=== PATIENT | male | born 1955 | race Caucasian/White ===

== ENCOUNTER 2017-10-24 06:32 | Emergency (ER) | payer OTHER ==
[~2017-10-24] VITALS: Ht 182.9 cm; Wt 74.8 kg
[~2017-10-24 06:32] MED LIST: AEROECLIPSE II1 EACH MC; ALBU90OI INH; Ativan0.5 MG PO; BP MED; BUDE10.22 INH; CEPH500 PO; DEPAKOTE; DIVA250EC PO; DIVA250ER PO; DIVA500EC PO; HYDACE5 PO; KETO10 PO; LISI20 PO; LORA1 PO; Lisinopril2.5 MG; Mucinex600 MG PO; OTC VITAMINS; Prednisone20 MG PO; QUET100 PO; RISPERDAL PO; RXONDA4ODT MM; Ventolin Soln3 ML INH; Vibramycin100 MG PO; Zithromax250 MG PO
[2017-10-24] MEDS ORDERED: ALBU90OI INH ×2 (06:42→08:33)
[2017-10-24 07:11] LABS: BASOPHILS ABSOLUTE AUTO 0.09 K/mm3 (0.00-0.23); BASOPHILS PERCENT AUTO 1 % (0-2); EOSINOPHILS ABSOLUTE AUTO 0.61 K/mm3 (0.00-0.68); EOSINOPHILS PERCENT AUTO 8 % (0-6); Hematocrit 46.8 % (37.0-53.0); Hemoglobin 15.5 g/dL (13.5-17.5); IMMATURE GRAN ABSOLUTE AUTO 0.06 K/mm3 (0.00-0.10); IMMATURE GRAN PERCENT AUTO 1 % (0-1); LYMPHOCYTES ABSOLUTE AUTO 1.75 K/mm3 (0.84-5.20); LYMPHOCYTES PERCENT AUTO 22 % (21-46); MONOCYTES PERCENT AUTO 9 % (4-13); Mean Corpuscular HGB 29.3 pg (26.0-34.0); Mean Corpuscular HGB Conc 33.1 g/dL (31.5-36.5); Mean Corpuscular Volume 89 fL (80-100); Mean Platelet Volume 10.2 fL (9.1-12.4); NEUTROPHILS ABSOLUTE AUTO 4.77 K/mm3 (1.96-9.15); NEUTROPHILS PERCENT AUTO 60 % (41-73); Platelet Count 224 K/mm3 (150-400); RDW Coefficient Variation 14.6 % (11.7-14.2); RDW Standard Deviation 47.6 fL (35.1-46.3); Red Blood Cell Count 5.29 M/mm3 (4.30-5.90); White Blood Cell Count 7.98 K/mm3 (4.00-11.30)
[2017-10-24 07:29] LABS: Alanine Aminotransfer (ALT/SGP 18 U/L (12-78); Albumin, Blood 3.5 g/dL (3.4-5.0); Albumin/Globulin Ratio 0.9 (0.8-1.8); Alk Phos 83 U/L (50-136); Anion Gap 6 mmol/L (6-16); Aspartate Aminotrans (AST/SGOT 15 U/L (12-37); Bilirubin, Total 0.2 mg/dL (0.1-1.0); Blood Urea Nitrogen 15 mg/dL (8-24); Bun/Creatinine Ratio 16.5 (12.0-20.0); CO2, Blood 29 mmol/L (21-32); Calcium, Blood 9.1 mg/dL (8.5-10.1); Chloride, Blood 104 mmol/L (98-108); Creatinine, Blood 0.91 mg/dL (0.60-1.20); Globulin, Blood 4.1 g/dL (2.2-4.0); Glomerular Filtration Rate >60 (60-); Glucose, Blood 91 mg/dL (70-99); Potassium, Blood 4.4 mmol/L (3.5-5.5); Sodium, Blood 139 mmol/L (136-145); Total Protein, Blood 7.6 g/dL (6.4-8.2); Troponin I <0.015 ng/mL (0.000-0.040)
[2017-10-24] MEDS ORDERED: METPRE4DP PO (08:33)
[2017-10-24] MEDS ORDERED: Duoneb 2.5-0.5 M3 ML INH (08:33)
== END 2017-10-24 08:53 | disposition home or self-care (01) ==
LOC: ER 06:32
PROVIDERS: Emergency Medicine
DX: J44.1 Chronic obstructive pulmonary disease with (acute) exacerbation (principal); I10 Essential (primary) hypertension; F31.9 Bipolar disorder, unspecified; I72.9 Aneurysm of unspecified site; F17.210 Nicotine dependence, cigarettes, uncomplicated; Z88.2 Allergy status to sulfonamides; Z88.6 Allergy status to analgesic agent; Z79.51 Long term (current) use of inhaled steroids; Z79.899 Other long term (current) drug therapy
CPT/HCPCS: 36415; 71046; 80053; 83880; 84484; 85025; 93005; 93010; 94640; 96374; 99284; J2930

== ENCOUNTER 2017-12-19 18:35 | Emergency (ER) | payer SELFPAY ==
[~2017-12-19] VITALS: Ht 177.8 cm; Wt 72.6 kg
[~2017-12-19 18:35] MED LIST changes: +Duoneb 2.5-0.5 M3 ML INH; +METPRE4DP PO
[2017-12-19] MEDS ORDERED: LISI20 PO (19:59)
== END 2017-12-19 21:30 | disposition short-term general hospital (02) ==
LOC: ER 18:35
DX: F25.9 Schizoaffective disorder, unspecified (principal); I10 Essential (primary) hypertension; J44.9 Chronic obstructive pulmonary disease, unspecified; F17.210 Nicotine dependence, cigarettes, uncomplicated; Z79.899 Other long term (current) drug therapy; Z79.51 Long term (current) use of inhaled steroids
CPT/HCPCS: 93005; 93010

== ENCOUNTER 2019-04-07 06:18 | Emergency (ER) | payer OTHER ==
[~2019-04-07] VITALS: Ht 180.3 cm; Wt 72.6 kg
[~2019-04-07 06:18] MED LIST changes: -DIVA250EC PO; +DIVA500ER PO; +PRED20 PO; +RISP2 PO; -RISPERDAL PO
[2019-04-07 06:58] LABS: BASOPHILS ABSOLUTE AUTO 0.03 K/mm3 (0.00-0.23); BASOPHILS PERCENT AUTO 0 % (0-2); EOSINOPHILS ABSOLUTE AUTO 0.21 K/mm3 (0.00-0.68); EOSINOPHILS PERCENT AUTO 2 % (0-6); Hematocrit 38.4 % (37.0-53.0); Hemoglobin 12.9 g/dL (13.5-17.5); IMMATURE GRAN ABSOLUTE AUTO 0.18 K/mm3 (0.00-0.10); IMMATURE GRAN PERCENT AUTO 1 % (0-1); LYMPHOCYTES ABSOLUTE AUTO 1.92 K/mm3 (0.84-5.20); LYMPHOCYTES PERCENT AUTO 15 % (21-46); MONOCYTES ABSOLUTE AUTO 1.07 K/mm3 (0.16-1.47); MONOCYTES PERCENT AUTO 8 % (4-13); Mean Corpuscular HGB 28.5 pg (26.0-34.0); Mean Corpuscular HGB Conc 33.6 g/dL (31.5-36.5); Mean Corpuscular Volume 85 fL (80-100); Mean Platelet Volume 10.2 fL (9.1-12.4); NEUTROPHILS ABSOLUTE AUTO 9.58 K/mm3 (1.96-9.15); NEUTROPHILS PERCENT AUTO 74 % (41-73); Platelet Count 240 K/mm3 (150-400); RDW Coefficient Variation 14.3 % (11.7-14.2); RDW Standard Deviation 44.4 fL (35.1-46.3); Red Blood Cell Count 4.53 M/mm3 (4.30-5.90); White Blood Cell Count 12.99 K/mm3 (4.00-11.30)
[2019-04-07 07:09] LABS: Source, Urine Clean Catch
[2019-04-07 07:12] LABS: Bilirubin, Urine Neg (Neg); Blood, Urine Neg (Neg); Glucose Qualitative, Urine Neg (Neg); Ketones, Urine Neg (Neg); Leukocyte Esterase, Urine Neg (Neg); Nitrite, Urine Neg (Neg); Protein, Urine Neg (Neg); Urobilinogen, Urine NORM (Normal)
[2019-04-07 07:13] LABS: Appearance, Urine Clear (Clear); Color, Urine Yellow (P-Yellow)
[2019-04-07 07:20] LABS: Anion Gap 5 mmol/L (6-16); Blood Urea Nitrogen 17 mg/dL (8-24); Bun/Creatinine Ratio 16.7 (12.0-20.0); CO2, Blood 30 mmol/L (21-32); Chloride, Blood 100 mmol/L (98-108); Creatinine, Blood 1.02 mg/dL (0.60-1.20); Glomerular Filtration Rate >60 (60-); Glucose, Blood 94 mg/dL (70-99); Potassium, Blood 4.7 mmol/L (3.5-5.5); Sodium, Blood 135 mmol/L (136-145)
[2019-04-07 07:21] LABS: Albumin, Blood 3.1 g/dL (3.4-5.0); Albumin/Globulin Ratio 0.9 (0.8-1.8); Alk Phos 88 U/L (50-136); Aspartate Aminotrans (AST/SGOT 17 U/L (12-37); Bilirubin, Total 0.3 mg/dL (0.1-1.0); Calcium, Blood 8.3 mg/dL (8.5-10.1); Globulin, Blood 3.3 g/dL (2.2-4.0); Total Protein, Blood 6.4 g/dL (6.4-8.2)
[2019-04-07 07:22] LABS: Troponin I <0.015 ng/mL (0.000-0.040)
[2019-04-07 07:23] LABS: Alanine Aminotransfer (ALT/SGP 27 U/L (12-78)
[2019-04-07] MEDS ORDERED: Prednisone20 MG PO (07:45)
== END 2019-04-07 09:08 | disposition home or self-care (01) ==
LOC: ER 06:18
PROVIDERS: Emergency Medicine
DX: J44.1 Chronic obstructive pulmonary disease with (acute) exacerbation (principal); F31.9 Bipolar disorder, unspecified; I10 Essential (primary) hypertension; G40.909 Epilepsy, unspecified, not intractable, without status epilepticus; Z88.2 Allergy status to sulfonamides; Z88.8 Allergy status to other drugs, medicaments and biological substances; Z79.899 Other long term (current) drug therapy; Z79.52 Long term (current) use of systemic steroids; F17.200 Nicotine dependence, unspecified, uncomplicated
CPT/HCPCS: 36415; 71046; 80053; 81003; 83880; 84484; 85025; 93005; 93010; 99284-25; J7512

== ENCOUNTER 2019-04-22 23:27 | Observation (INO) | payer SELFPAY ==
[~2019-04-22] VITALS: Ht 180.3 cm; Wt 70.3 kg
[2019-04-23 00:26] LABS: Base Excess Venous 6.2 mmol/L; Bicarbonate Venous 28.2 mmol/L (24.0-30.0); PCO2 Venous 53.1 mmHg (38-42); PO2 Venous 34.5 mmHg (38-42); pH Blood Venous 7.38 (7.34-7.37)
[2019-04-23 00:31] LABS: BASOPHILS ABSOLUTE AUTO 0.06 K/mm3 (0.00-0.23); BASOPHILS PERCENT AUTO 1 % (0-2); EOSINOPHILS ABSOLUTE AUTO 0.33 K/mm3 (0.00-0.68); EOSINOPHILS PERCENT AUTO 3 % (0-6); Hematocrit 34.6 % (37.0-53.0); Hemoglobin 11.6 g/dL (13.5-17.5); IMMATURE GRAN ABSOLUTE AUTO 0.15 K/mm3 (0.00-0.10); IMMATURE GRAN PERCENT AUTO 1 % (0-1); LYMPHOCYTES ABSOLUTE AUTO 1.36 K/mm3 (0.84-5.20); LYMPHOCYTES PERCENT AUTO 13 % (21-46); MONOCYTES ABSOLUTE AUTO 1.48 K/mm3 (0.16-1.47); MONOCYTES PERCENT AUTO 14 % (4-13); Mean Corpuscular HGB 29.1 pg (26.0-34.0); Mean Corpuscular HGB Conc 33.5 g/dL (31.5-36.5); Mean Corpuscular Volume 87 fL (80-100); Mean Platelet Volume 9.7 fL (9.1-12.4); NEUTROPHILS PERCENT AUTO 68 % (41-73); Platelet Count 351 K/mm3 (150-400); RDW Coefficient Variation 14.3 % (11.7-14.2); RDW Standard Deviation 45.5 fL (35.1-46.3); Red Blood Cell Count 3.99 M/mm3 (4.30-5.90); White Blood Cell Count 10.58 K/mm3 (4.00-11.30)
[2019-04-23 00:53] LABS: Alanine Aminotransfer (ALT/SGP 23 U/L (12-78); Albumin, Blood 2.9 g/dL (3.4-5.0); Albumin/Globulin Ratio 0.7 (0.8-1.8); Alk Phos 96 U/L (50-136); Anion Gap 7 mmol/L (6-16); Aspartate Aminotrans (AST/SGOT 18 U/L (12-37); Bilirubin, Total 0.2 mg/dL (0.1-1.0); Blood Urea Nitrogen 23 mg/dL (8-24); Bun/Creatinine Ratio 20.7 (12.0-20.0); CO2, Blood 30 mmol/L (21-32); Calcium, Blood 8.7 mg/dL (8.5-10.1); Chloride, Blood 91 mmol/L (98-108); Creatinine, Blood 1.11 mg/dL (0.60-1.20); Globulin, Blood 4.4 g/dL (2.2-4.0); Glomerular Filtration Rate >60 (60-); Glucose, Blood 87 mg/dL (70-99); Potassium, Blood 4.9 mmol/L (3.5-5.5); Sodium, Blood 128 mmol/L (136-145); Total Protein, Blood 7.3 g/dL (6.4-8.2); Troponin I <0.015 ng/mL (0.000-0.040)
[2019-04-23] MEDS ORDERED: Prednisone20 MG PO (02:41)
--- NOTE | 2019-04-23 17:09 | NUR ---
PT ARRIVED TO THE FLOOR THIS AFTERNOON BY JEANNA. PT IRRITABLE, BUT COOPERATIVE WITH STAFF. PT WITHOUT SIGNS OF RESPIRATORY DISTRESS DURING THIS SHIFT. PT REMOVED FROM 2L O2 PER DR CHINCHILLA. NO RESPIRATORY DISTRESS AFTER REMOVING O2. PT SELF ADJUSTS IN BED AND USES CALL LIGHT APPROPRIATELY. PT HAS WOUND ON RT BALDERRAMA THAT IS BEING CARED FOR BY THE [facility]. PT STATES WHEELCHAIR BOUND AT BASELINE AND CAREGIVERS HAVE BECOME UNRELIABLE. PT CURRENTLY WATCHING TV IN ROOM WITHOUT FURTHER REQUESTS. CALL LIGHT IN REACH, WILL CONTINUE TO MONITOR.
--- NOTE | 2019-04-23 21:29 | NUR ---
PATIENT HEARD CURSING AND TALKING LOUDLY IN ROOM. CHECKED ON PATIENT AND HE STATED HE WAS FINE. PATIENT WAS ON THE PHONE AT THE TIME. PATIENT REFUSED TO ALLOW THIS NURSE TO DO A FULL ASSESSMENT AND BEGAN FLAILING HIS ARMS AROUND AND THEN COMPLAINED ABOUT A DOG "JUMPING ON HIS WOUNDS". PATIENT HAS A WOUND ON LOWER RIGHT BALDERRAMA/ANKLE THAT HE STATES A DOG HAS BEEN LICKING. WOUND IS OPEN TO AIR. PATIENT CALLS APPROPRIATELY AND USES URINAL. WHEN DUMPING THE URINAL OUT IN THE TOILET THE PATIENT ASKED IF I WAS KEEPING HIS URINE HIDDEN. PATIENT HEARD CUSSING AND SAYING RACIAL SLURS IN A CONVERSATION WITH HIMSELF. PATIENT STATES HE IS SPEAKING TO HIS "SLUM LORD" ALTHOUGH HE IS NOT ON THE PHONE NOR IS ANYONE ELSE IN THE ROOM. WILL CONTINUE TO MONITOR AND TRY TO DO AN ASSESSMENT LATER IN THE SHIFT. PATIENT REFUSED VITAL SIGNS WELL ACCORDING TO THE LATHE MACHINE OPERATOR.
[2019-04-24 05:01] LABS: Hematocrit 34.9 % (37.0-53.0); Hemoglobin 11.8 g/dL (13.5-17.5); Mean Corpuscular HGB 29.1 pg (26.0-34.0); Mean Corpuscular HGB Conc 33.8 g/dL (31.5-36.5); Mean Corpuscular Volume 86 fL (80-100); Mean Platelet Volume 9.6 fL (9.1-12.4); Platelet Count 388 K/mm3 (150-400); RDW Coefficient Variation 14.2 % (11.7-14.2); RDW Standard Deviation 44.8 fL (35.1-46.3); Red Blood Cell Count 4.05 M/mm3 (4.30-5.90); White Blood Cell Count 12.35 K/mm3 (4.00-11.30)
--- NOTE | 2019-04-24 05:15 | NUR ---
SHIFT SUMMARY NO ACUTE EVENTS OVERNIGHT. PATEINT DID NOT SLEEP AT ALL T/O THE NIGHT. PATIENT WAS UNCOOPERATIVE WITH STAFF AND REFUSED TO ALLOW HIS VITAL SIGNS TO BE TAKEN DURING FIRST PART OF SHIFT. PATIENT WAS COOPERATIVE AFTER MIDNIGHT AND ALLOWED A SET OF VITALSIGNS BE TAKEN. PATIENT ON MULTIPLE OCCASIONS WAS ASKED TO NOT SPEAK IN SUCH A LOUD VOICE AND TO ATTEMPT TO REFRAIN FROM CURSING. PATEINT UPSET ABOUT DOGS AT [facility] JUSMPING ON AND LICKING HIS WOUNDS. PATIENT UP MAKING PHONE CALLS ALL NIGHT LONG. PATEINT ALSO OBSERVED SPEAKING TO SELF ON MULTIPLE OCCASIONS AND YELLING AT TV. WILL CONTINUE TO MONITOR
[2019-04-24 05:44] LABS: Alanine Aminotransfer (ALT/SGP 17 U/L (12-78); Albumin, Blood 2.7 g/dL (3.4-5.0); Albumin/Globulin Ratio 0.6 (0.8-1.8); Alk Phos 85 U/L (50-136); Anion Gap 9 mmol/L (6-16); Aspartate Aminotrans (AST/SGOT 17 U/L (12-37); Bilirubin, Total 0.2 mg/dL (0.1-1.0); Blood Urea Nitrogen 23 mg/dL (8-24); Bun/Creatinine Ratio 25.2 (12.0-20.0); CO2, Blood 27 mmol/L (21-32); Calcium, Blood 8.6 mg/dL (8.5-10.1); Chloride, Blood 97 mmol/L (98-108); Creatinine, Blood 0.91 mg/dL (0.60-1.20); Globulin, Blood 4.2 g/dL (2.2-4.0); Glomerular Filtration Rate >60 (60-); Glucose, Blood 173 mg/dL (70-99); Potassium, Blood 4.4 mmol/L (3.5-5.5); Sodium, Blood 133 mmol/L (136-145); Total Protein, Blood 6.9 g/dL (6.4-8.2)
[2019-04-24] MEDS ORDERED: ALBU2.5V5 INH (07:58)
[2019-04-24] MEDS ORDERED: CLOP75 PO (07:59)
[2019-04-24] MEDS ORDERED: Amlodipine Besy10 MG PO (07:59)
[2019-04-24] MEDS ORDERED: Hydroxyzine HCl50 MG PO (08:01)
[2019-04-24] MEDS ORDERED: PANT40 PO (08:03)
--- NOTE | 2019-04-24 08:51 | NUR ---
[facility] HOME MED LIST, MED LIST RECONCILED. DR CHINCHILLA NOTIFIED OF CHANGES TO MEDICATIONS. PT REFUSED FOR RESP PANEL TO BE COMPLETED. CONFIRMED WITH BY YOUR SIDE IN [place] THAT CAREGIVER TO BE AT HIS HOUSE TODAY AT 1:00.
[2019-04-24] MEDS ORDERED: Ventolin/Prove6.7 GM INH (11:19)
[2019-04-24] MEDS ORDERED: FLUT1DIS5 INH ×2 (11:20→11:34)
[2019-04-24] MEDS ORDERED: LEVO750 PO (11:21)
[2019-04-24] MEDS ORDERED: Prednisone10 MG PO (11:24)
--- NOTE | 2019-04-24 11:30 | NUR ---
PT USES [facility]. 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 SPOKE WITH [facility] AND THEY CAN FILL RX TODAY AND DELIVER AFTER 1:00, PT AGREED TO THIS. [facility] REIMBURSE[facility] SHEET GIVEN TO PT. CAREGIVER TO BE AT PT HOUSE AT 1:00. PT ABLE TO GET UP INTO CHAIR WITH [facility]. PT REPORTS HE WILL PAY FOR [employer] W/C TRANSPORT BACK HOME. WILL CALL FOR TRANSPORT ONCE HOME EVAL COMPLETED.
--- NOTE | 2019-04-24 12:11 | NUR ---
DISCHARGE INSTRUCTIONS REVIEWED WITH PT. IV DC'D INTACT. PT AWAITING [facility] W/ TRANSPORT HOME AT THIS TIME. HOME 02 EVAL COMPLETED AND NO OXYGEN NEEDED.
--- NOTE | 2019-04-24 12:21 | NUR ---
PT DISCHARGED HOME VIA [facility] W/C AT 1220. CAREGIVER TO BE AT HIS HOUSE AT 1300 AND PHARMACY TO DELIVER AFTER 1300.
== END 2019-04-24 12:22 | disposition home or self-care (01) ==
LOC: ER 23:27 → ERHOLD 23:28 → MEDS 04-23 12:18 → ENPENDDIS 04-24 11:09 → MEDS 04-24 12:22
PROVIDERS: Emergency Medicine; ADMIT Internal Medicine
DX: J96.01 Acute respiratory failure with hypoxia (principal); J44.1 Chronic obstructive pulmonary disease with (acute) exacerbation; T38.0X5A Adverse effect of glucocorticoids and synthetic analogues, initial encounter; D72.829 Elevated white blood cell count, unspecified; E87.1 Hypo-osmolality and hyponatremia; I10 Essential (primary) hypertension; I73.9 Peripheral vascular disease, unspecified; L97.919 Non-pressure chronic ulcer of unspecified part of right lower leg with unspecified severity; F31.9 Bipolar disorder, unspecified; F17.210 Nicotine dependence, cigarettes, uncomplicated; K92.1 Melena; Z85.47 Personal history of malignant neoplasm of testis; Z79.899 Other long term (current) drug therapy; Z79.02 Long term (current) use of antithrombotics/antiplatelets; Z79.52 Long term (current) use of systemic steroids; Z88.2 Allergy status to sulfonamides; Z88.8 Allergy status to other drugs, medicaments and biological substances
CPT/HCPCS: 36415; 71046; 80053; 82803; 83880; 84145; 84484; 85025; 85027; 86850; 86900; 86901; 93005; 93010; 94640; 94760; 94761; 96361; 96365; 96366; 96372; 96375; 96376; 99285-25; G0378; J0456; J0696; J1650; J2930; J7030; J7050

== ENCOUNTER 2019-05-05 00:14 | Emergency (ER) | payer OTHER ==
[~2019-05-05] VITALS: Ht 177.8 cm; Wt 72.6 kg
[~2019-05-05 00:14] MED LIST changes: +ALBU2.5V5 INH; +Amlodipine Besy10 MG PO; +CLOP75 PO; +FLUT1DIS5 INH; +Hydroxyzine HCl50 MG PO; +LEVO750 PO; +PANT40 PO; +Prednisone10 MG PO; +Ventolin/Prove6.7 GM INH
[2019-05-05 00:32] LABS: BASOPHILS ABSOLUTE AUTO 0.03 K/mm3 (0.00-0.23); BASOPHILS PERCENT AUTO 0 % (0-2); EOSINOPHILS PERCENT AUTO 0 % (0-6); Hematocrit 36.3 % (37.0-53.0); Hemoglobin 12.1 g/dL (13.5-17.5); IMMATURE GRAN PERCENT AUTO 4 % (0-1); LYMPHOCYTES ABSOLUTE AUTO 1.61 K/mm3 (0.84-5.20); LYMPHOCYTES PERCENT AUTO 14 % (21-46); MONOCYTES ABSOLUTE AUTO 0.97 K/mm3 (0.16-1.47); MONOCYTES PERCENT AUTO 9 % (4-13); Mean Corpuscular HGB 29.2 pg (26.0-34.0); Mean Corpuscular HGB Conc 33.3 g/dL (31.5-36.5); Mean Corpuscular Volume 88 fL (80-100); Mean Platelet Volume 9.8 fL (9.1-12.4); NEUTROPHILS ABSOLUTE AUTO 8.13 K/mm3 (1.96-9.15); NEUTROPHILS PERCENT AUTO 72 % (41-73); Platelet Count 343 K/mm3 (150-400); RDW Coefficient Variation 15.4 % (11.7-14.2); RDW Standard Deviation 49.4 fL (35.1-46.3); Red Blood Cell Count 4.15 M/mm3 (4.30-5.90); White Blood Cell Count 11.24 K/mm3 (4.00-11.30)
[2019-05-05 00:43] LABS: PCO2 Arterial 45.7 mmHg (35-45); PO2 Arterial 53.3 mmHg (80-100); pH Blood Arterial 7.41 (7.35-7.45)
[2019-05-05 00:51] LABS: Alanine Aminotransfer (ALT/SGP 26 U/L (12-78); Albumin, Blood 2.8 g/dL (3.4-5.0); Albumin/Globulin Ratio 0.8 (0.8-1.8); Alk Phos 76 U/L (50-136); Anion Gap 6 mmol/L (6-16); Aspartate Aminotrans (AST/SGOT 20 U/L (12-37); Bilirubin, Total 0.1 mg/dL (0.1-1.0); Blood Urea Nitrogen 34 mg/dL (8-24); CO2, Blood 30 mmol/L (21-32); Calcium, Blood 8.2 mg/dL (8.5-10.1); Chloride, Blood 95 mmol/L (98-108); Creatinine, Blood 1.26 mg/dL (0.60-1.20); Globulin, Blood 3.3 g/dL (2.2-4.0); Glomerular Filtration Rate >60 (60-); Glucose, Blood 125 mg/dL (70-99); Potassium, Blood 4.5 mmol/L (3.5-5.5); Sodium, Blood 131 mmol/L (136-145); Total Protein, Blood 6.1 g/dL (6.4-8.2); Troponin I 0.032 ng/mL (0.000-0.040)
[2019-05-05] MEDS ORDERED: CEPH500 PO (01:04)
== END 2019-05-05 01:26 | disposition home or self-care (01) ==
LOC: ER 00:14
PROVIDERS: Emergency Medicine
DX: J44.1 Chronic obstructive pulmonary disease with (acute) exacerbation (principal); Z88.2 Allergy status to sulfonamides; Z88.8 Allergy status to other drugs, medicaments and biological substances; Z79.899 Other long term (current) drug therapy; Z79.52 Long term (current) use of systemic steroids; F31.9 Bipolar disorder, unspecified; I10 Essential (primary) hypertension; F17.210 Nicotine dependence, cigarettes, uncomplicated
CPT/HCPCS: 36415; 36600; 71046; 80053; 82803; 84484; 85025; 93005; 93010; 94640; 96361; 96365; 96375; 99284-25; J0696; J2930; J7030

== ENCOUNTER 2019-05-15 18:49 | Emergency (ER) | payer OTHER ==
[~2019-05-15] VITALS: Ht 177.8 cm; Wt 88.5 kg
== END 2019-05-15 19:22 | disposition home or self-care (01) ==
LOC: ER 18:49
DX: L97.919 Non-pressure chronic ulcer of unspecified part of right lower leg with unspecified severity (principal); J44.9 Chronic obstructive pulmonary disease, unspecified; F25.9 Schizoaffective disorder, unspecified; F17.200 Nicotine dependence, unspecified, uncomplicated; Z85.47 Personal history of malignant neoplasm of testis; Z88.2 Allergy status to sulfonamides; Z88.8 Allergy status to other drugs, medicaments and biological substances; Z79.899 Other long term (current) drug therapy; Z79.02 Long term (current) use of antithrombotics/antiplatelets; Z79.52 Long term (current) use of systemic steroids
CPT/HCPCS: 99283

== ENCOUNTER 2019-05-24 20:24 | Emergency (ER) | payer OTHER ==
[~2019-05-24] VITALS: Ht 180.3 cm; Wt 72.6 kg
[~2019-05-24 20:24] MED LIST changes: -ALBU2.5V5 INH; +ALBU2.5V5 NEB; +STIOLTO RESPIMAT4 GM INH
[2019-05-24 20:40] LABS: BASOPHILS ABSOLUTE AUTO 0.07 K/mm3 (0.00-0.23); BASOPHILS PERCENT AUTO 1 % (0-2); EOSINOPHILS ABSOLUTE AUTO 0.29 K/mm3 (0.00-0.68); EOSINOPHILS PERCENT AUTO 3 % (0-6); Hematocrit 39.7 % (37.0-53.0); Hemoglobin 13.3 g/dL (13.5-17.5); IMMATURE GRAN ABSOLUTE AUTO 0.23 K/mm3 (0.00-0.10); IMMATURE GRAN PERCENT AUTO 2 % (0-1); LYMPHOCYTES ABSOLUTE AUTO 3.09 K/mm3 (0.84-5.20); LYMPHOCYTES PERCENT AUTO 33 % (21-46); MONOCYTES ABSOLUTE AUTO 0.89 K/mm3 (0.16-1.47); MONOCYTES PERCENT AUTO 10 % (4-13); Mean Corpuscular HGB 29.6 pg (26.0-34.0); Mean Corpuscular HGB Conc 33.5 g/dL (31.5-36.5); Mean Corpuscular Volume 88 fL (80-100); Mean Platelet Volume 9.2 fL (9.1-12.4); NEUTROPHILS ABSOLUTE AUTO 4.82 K/mm3 (1.96-9.15); NEUTROPHILS PERCENT AUTO 51 % (41-73); Platelet Count 305 K/mm3 (150-400); RDW Coefficient Variation 16.1 % (11.7-14.2); RDW Standard Deviation 52.1 fL (35.1-46.3); Red Blood Cell Count 4.49 M/mm3 (4.30-5.90); White Blood Cell Count 9.39 K/mm3 (4.00-11.30)
[2019-05-24 21:01] LABS: Alanine Aminotransfer (ALT/SGP 19 U/L (12-78); Albumin, Blood 3.4 g/dL (3.4-5.0); Alk Phos 57 U/L (50-136); Anion Gap 6 mmol/L (6-16); Aspartate Aminotrans (AST/SGOT 16 U/L (12-37); Bilirubin, Total 0.3 mg/dL (0.1-1.0); Blood Urea Nitrogen 26 mg/dL (8-24); Bun/Creatinine Ratio 24.5 (12.0-20.0); CO2, Blood 30 mmol/L (21-32); Calcium, Blood 9.1 mg/dL (8.5-10.1); Chloride, Blood 99 mmol/L (98-108); Creatinine, Blood 1.06 mg/dL (0.60-1.20); Globulin, Blood 3.3 g/dL (2.2-4.0); Glomerular Filtration Rate >60 (60-); Glucose, Blood 73 mg/dL (70-99); Potassium, Blood 4.9 mmol/L (3.5-5.5); Sodium, Blood 135 mmol/L (136-145); Total Protein, Blood 6.7 g/dL (6.4-8.2); Troponin I <0.015 ng/mL (0.000-0.040)
[2019-05-24] MEDS ORDERED: PRED10 PO (21:23)
[2019-05-24] MEDS ORDERED: ALBU3IS INH (21:23)
[2019-05-24] MEDS ORDERED: ALBU90OI INH (21:23)
== END 2019-05-24 21:35 | disposition home or self-care (01) ==
LOC: ER 20:24
PROVIDERS: Emergency Medicine
DX: J44.1 Chronic obstructive pulmonary disease with (acute) exacerbation (principal); Z91.19 Patient's noncompliance with other medical treatment and regimen; F25.9 Schizoaffective disorder, unspecified; G40.909 Epilepsy, unspecified, not intractable, without status epilepticus; F17.200 Nicotine dependence, unspecified, uncomplicated
CPT/HCPCS: 36415; 71045; 80053; 84484; 85025; 93005; 93010; 94644; 96374; 99285-25; J2930

== ENCOUNTER 2019-06-04 19:48 | Emergency (ER) | payer OTHER ==
[~2019-06-04] VITALS: Ht 177.8 cm; Wt 72.6 kg
[~2019-06-04 19:48] MED LIST changes: +ALBU3IS INH; +PRED10 PO
[2019-06-04 20:14] LABS: BASOPHILS ABSOLUTE AUTO 0.09 K/mm3 (0.00-0.23); BASOPHILS PERCENT AUTO 1 % (0-2); EOSINOPHILS ABSOLUTE AUTO 0.37 K/mm3 (0.00-0.68); EOSINOPHILS PERCENT AUTO 3 % (0-6); Hematocrit 36.4 % (37.0-53.0); Hemoglobin 12.2 g/dL (13.5-17.5); IMMATURE GRAN ABSOLUTE AUTO 0.31 K/mm3 (0.00-0.10); IMMATURE GRAN PERCENT AUTO 3 % (0-1); LYMPHOCYTES ABSOLUTE AUTO 2.17 K/mm3 (0.84-5.20); LYMPHOCYTES PERCENT AUTO 18 % (21-46); MONOCYTES ABSOLUTE AUTO 1.39 K/mm3 (0.16-1.47); MONOCYTES PERCENT AUTO 12 % (4-13); Mean Corpuscular HGB 29.1 pg (26.0-34.0); Mean Corpuscular HGB Conc 33.5 g/dL (31.5-36.5); Mean Corpuscular Volume 87 fL (80-100); Mean Platelet Volume 9.5 fL (9.1-12.4); NEUTROPHILS PERCENT AUTO 64 % (41-73); Platelet Count 282 K/mm3 (150-400); RDW Standard Deviation 50.2 fL (35.1-46.3); Red Blood Cell Count 4.19 M/mm3 (4.30-5.90); White Blood Cell Count 11.83 K/mm3 (4.00-11.30)
[2019-06-04 20:33] LABS: Alanine Aminotransfer (ALT/SGP 17 U/L (12-78); Albumin, Blood 3.1 g/dL (3.4-5.0); Albumin/Globulin Ratio 0.9 (0.8-1.8); Alk Phos 67 U/L (50-136); Anion Gap 5 mmol/L (6-16); Aspartate Aminotrans (AST/SGOT 12 U/L (12-37); Bilirubin, Total 0.2 mg/dL (0.1-1.0); Blood Urea Nitrogen 21 mg/dL (8-24); CO2, Blood 29 mmol/L (21-32); Calcium, Blood 8.6 mg/dL (8.5-10.1); Chloride, Blood 94 mmol/L (98-108); Globulin, Blood 3.4 g/dL (2.2-4.0); Glomerular Filtration Rate >60 (60-); Glucose, Blood 91 mg/dL (70-99); Potassium, Blood 4.3 mmol/L (3.5-5.5); Sodium, Blood 128 mmol/L (136-145); Total Protein, Blood 6.5 g/dL (6.4-8.2); Troponin I <0.015 ng/mL (0.000-0.040)
[2019-06-04] MEDS ORDERED: NORVASC10 MG PO (21:42)
[2019-06-04] MEDS ORDERED: Prednisone20 MG PO (21:49)
[2019-06-04] MEDS ORDERED: Lasix20 MG PO (21:49)
== END 2019-06-05 23:12 | disposition home or self-care (01) ==
LOC: ER 19:48
PROVIDERS: Physician Assistant
DX: J44.1 Chronic obstructive pulmonary disease with (acute) exacerbation (principal); I50.9 Heart failure, unspecified; R60.0 Localized edema; F25.9 Schizoaffective disorder, unspecified; F17.200 Nicotine dependence, unspecified, uncomplicated; Z88.2 Allergy status to sulfonamides; Z88.8 Allergy status to other drugs, medicaments and biological substances; Z79.899 Other long term (current) drug therapy; Z79.02 Long term (current) use of antithrombotics/antiplatelets; Z79.52 Long term (current) use of systemic steroids
CPT/HCPCS: 36415; 71046; 80053; 83880; 84484; 85025; 93005; 93010; 93971; 94644; 96374; 96375; 99285-25; J1940; J2930

== ENCOUNTER 2019-06-05 17:10 | Emergency (ER) | payer OTHER ==
[~2019-06-05] VITALS: Ht 177.8 cm; Wt 72.6 kg
[~2019-06-05 17:10] MED LIST changes: +Lasix20 MG PO; +NORVASC10 MG PO
[2019-06-05 17:51] LABS: BASOPHILS ABSOLUTE AUTO 0.04 K/mm3 (0.00-0.23); BASOPHILS PERCENT AUTO 0 % (0-2); EOSINOPHILS PERCENT AUTO 0 % (0-6); Hemoglobin 12.1 g/dL (13.5-17.5); IMMATURE GRAN ABSOLUTE AUTO 0.37 K/mm3 (0.00-0.10); IMMATURE GRAN PERCENT AUTO 3 % (0-1); LYMPHOCYTES ABSOLUTE AUTO 0.72 K/mm3 (0.84-5.20); LYMPHOCYTES PERCENT AUTO 5 % (21-46); MONOCYTES ABSOLUTE AUTO 1.11 K/mm3 (0.16-1.47); MONOCYTES PERCENT AUTO 8 % (4-13); Mean Corpuscular HGB 29.7 pg (26.0-34.0); Mean Corpuscular HGB Conc 33.6 g/dL (31.5-36.5); Mean Corpuscular Volume 88 fL (80-100); Mean Platelet Volume 9.8 fL (9.1-12.4); NEUTROPHILS ABSOLUTE AUTO 11.66 K/mm3 (1.96-9.15); NEUTROPHILS PERCENT AUTO 84 % (41-73); Platelet Count 307 K/mm3 (150-400); RDW Coefficient Variation 16.2 % (11.7-14.2); RDW Standard Deviation 52.7 fL (35.1-46.3); Red Blood Cell Count 4.08 M/mm3 (4.30-5.90)
[2019-06-05 18:10] LABS: Alanine Aminotransfer (ALT/SGP 19 U/L (12-78); Albumin, Blood 3.2 g/dL (3.4-5.0); Albumin/Globulin Ratio 0.9 (0.8-1.8); Alk Phos 65 U/L (50-136); Anion Gap 5 mmol/L (6-16); Aspartate Aminotrans (AST/SGOT 10 U/L (12-37); Bilirubin, Total 0.2 mg/dL (0.1-1.0); Blood Urea Nitrogen 32 mg/dL (8-24); Bun/Creatinine Ratio 32.3 (12.0-20.0); CO2, Blood 30 mmol/L (21-32); Calcium, Blood 8.4 mg/dL (8.5-10.1); Chloride, Blood 93 mmol/L (98-108); Creatinine, Blood 0.99 mg/dL (0.60-1.20); Globulin, Blood 3.6 g/dL (2.2-4.0); Glomerular Filtration Rate >60 (60-); Glucose, Blood 115 mg/dL (70-99); Potassium, Blood 4.9 mmol/L (3.5-5.5); Sodium, Blood 128 mmol/L (136-145); Total Protein, Blood 6.8 g/dL (6.4-8.2); Troponin I <0.015 ng/mL (0.000-0.040)
== END 2019-06-05 18:50 | disposition home or self-care (01) ==
LOC: ER 17:10
PROVIDERS: Emergency Medicine
DX: J44.1 Chronic obstructive pulmonary disease with (acute) exacerbation (principal); I10 Essential (primary) hypertension; F25.9 Schizoaffective disorder, unspecified; F17.200 Nicotine dependence, unspecified, uncomplicated; Z88.2 Allergy status to sulfonamides; Z88.8 Allergy status to other drugs, medicaments and biological substances; Z79.899 Other long term (current) drug therapy; Z79.52 Long term (current) use of systemic steroids; Z79.02 Long term (current) use of antithrombotics/antiplatelets
CPT/HCPCS: 36415; 71045; 80053; 83880; 84484; 85025; 93005; 93010; 94640; 99284-25; J7512